=== PATIENT | male | born 1985 | race Caucasian/White ===

== ENCOUNTER 2019-11-07 20:46 | Emergency (ER) | payer OTHER ==
[~2019-11-07] VITALS: Ht 188 cm; Wt 165.0 kg
[2019-11-07 20:57] VITALS: BP 153/83
--- NOTE | 2019-11-07 21:12 | NUR ---
irrigated lac to forehead with 30cc of normal saline, Dr Stubbs applied dermabond to lac, pt hernan well
== END 2019-11-07 21:23 | disposition home or self-care (01) ==
LOC: ER 20:46
DX: S01.81XA Laceration without foreign body of other part of head, initial encounter (principal); S09.90XA Unspecified injury of head, initial encounter; W19.XXXA Unspecified fall, initial encounter; Y93.89 Activity, other specified; Y92.214 College as the place of occurrence of the external cause; Y99.8 Other external cause status
CPT/HCPCS: 12011; 99282

== ENCOUNTER 2021-06-10 17:14 | Emergency (ER) | payer BC, OTHER ==
[~2021-06-10] VITALS: Ht 188 cm; Wt 165.9 kg
[2021-06-10 18:50] VITALS: BP 151/78
== END 2021-06-10 19:02 | disposition home or self-care (01) ==
LOC: ER 17:15
DX: R52 Pain, unspecified (principal); T50.B95A Adverse effect of other viral vaccines, initial encounter; R09.89 Other specified symptoms and signs involving the circulatory and respiratory systems; R05.9 Cough, unspecified; Y92.89 Other specified places as the place of occurrence of the external cause
CPT/HCPCS: 71045; 99283